=== PATIENT | male | born 1980 | race African-American/Black ===

== ENCOUNTER 2017-10-30 17:00 | Emergency (ER) | payer SELFPAY ==
[2017-10-30] MEDS ORDERED: Sodium Chloride 0.9% 10 ML Syringe FLUSH PRN (17:08)
[2017-10-30] MEDS ORDERED: Sodium Chloride 0.9% 1,000 ML IV ONE ×2 (17:08→19:11)
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
[2017-10-30] MEDS ORDERED: Thiamine 100 MG in Sodium Chloride 0.9% 100 ML IV ONE (18:10)
== END 2017-10-30 20:36 | disposition left against medical advice (07) ==
LOC: FB.ED 17:00
DX: F10.120 Alcohol abuse with intoxication, uncomplicated (principal); E86.0 Dehydration; Y90.0 Blood alcohol level of less than 20 mg/100 ml; V89.2XXA Person injured in unspecified motor-vehicle accident, traffic, initial encounter
CPT/HCPCS: 36415; 80048; 80076; 80305; 81001; 82150; 85025; 96361; 96365; 99283; 99284; G0480; J3411; J7030; J7050